=== PATIENT | female | born 1990 | race Caucasian/White ===

== ENCOUNTER 2021-03-29 10:01 | Emergency (ER) | payer BC, SELFPAY ==
--- NOTE | 2021-03-29 10:06 | ED.URI ---
HPI - URI/Sore Throat General Chief Complaint: Upper Respiratory Infection Stated Complaint: ACHY/SORE THROAT/COUGH Time Seen by Provider: 03/29/21 10:25 Source: patient and RN notes reviewed Mode of arrival: ambulatory Limitations: no limitations History of Present Illness HPI Narrative: 22-year-old female presents concern for body aches, productive cough, sore throat, nasal congestion, rhinorrhea. Reports 3 to 4 days of cough symptoms with body aches headache starting yesterday. MD elicited complaint: sore throat Related Data Home Medications Medication Instructions Recorded Confirmed No Home Medications 03/29/21 03/29/21 Allergies Allergy/AdvReac Type Severity Reaction Status Date / Time cefaclor Allergy Unknown Hives Verified 03/29/21 10:10 clarithromycin Allergy Unknown Hives Verified 03/29/21 10:10 amoxicillin Allergy Hives Verified 03/29/21 10:10 Review of Systems Review of Systems: Narrative: CONSTITUTIONAL: Denies malaise, chills, sweats, or fever. EYES: Denies visual changes, redness, or discharge. ENT: Reports rhinorrhea, congestion, and sore throat. Denies sinus pain, otalgia CARDIOVASCULAR: Denies chest pain, palpitations, or edema. RESPIRATORY: Reports cough. Denies dyspnea. GASTROINTESTINAL: Denies abdominal pain, nausea, vomiting, diarrhea SKIN: Denies rash or itching. MUSCULOSKELETAL: Reports myalgia. NEUROLOGIC: Reports headache. All systems reviewed & are unremarkable except as noted in HPI and below PMFSH Comments At time of signature, agree with nursing past medical, surgical, social and family history. There is no relevant family history pertinent to the presenting complaint Exam Narrative: Exam Narrative: GENERAL: Well-appearing, well-nourished, and in no acute distress. HEAD: Normocephalic EYES: PERRLA, conjunctivae clear ENT: Nares clear, turbinates erythematous, clear discharge. Mucous membranes moist. TM pearly mathis with sharp light reflex bilaterally; no tragal tenderness. Oropharynx not erythematous without lesions. Tonsils not enlarged and without exudate, no drooling, no hoarseness, no trismus, uvula midline. NECK: Supple. No lymphadenopathy CHEST: Clear to auscultation, breath sounds equal. No wheezing, rhonchi, rales, or stridor. No respiratory distress, speaks in full sentences. HEART: Regular rate and rhythm. No murmur heard. SKIN: Warm, dry, no rash. NEURO: Alert and oriented x3. PSYCH: Normal mood and affect Course Course Emergency Course: Patient is aware of diagnosis, understands and agrees to treatment plan. Anticipatory guidance given. Patient agrees to follow-up as directed and is aware of reasons to seek care at the emergency department. Portions of this record may have been created with voice recognition software Vital Signs Vital signs: Vital Signs Temperature 97.5 F L 03/29/21 10:14 Pulse Rate 105 H 03/29/21 10:14 Respiratory Rate 16 03/29/21 10:14 Blood Pressure 143/104 H 03/29/21 10:14 Pulse Oximetry 99 03/29/21 10:14 Temperature 97.5 F L 03/29/21 10:14 Pulse Rate 105 H 03/29/21 10:14 Respiratory Rate 16 03/29/21 10:14 Blood Pressure 143/104 H 03/29/21 10:14 Pulse Oximetry 99 03/29/21 10:14 Reviewed. MDM - URI/Sore Throat MDM Narrative Medical decision making narrative: Differential diagnosis considered: Dalton virus, strep pharyngitis, allergic rhinitis, upper respiratory tract infection, sinusitis, rhinosinusitis, nasopharyngitis. viral pharyngitis, otitis media, otitis externa, pneumonia, bronchitis, viral cough syndrome, viral syndrome, and influenza. Exam findings show no acute concerns or changes; patient is non-toxic appearing and is in no distress. Patient is appropriate for outpatient treatment and follow-up. Lab Data Attestation: I reviewed the patient's lab results. Critical Care Time Critical Care Time Critical Care Time: No Discharge Plan Discharge Clinical Impression: Upper respiratory infection Qualifie
[2021-03-29 10:14] VITALS: BP 143/104; PULSE 105; RESP 16; TEMP 36.4; O2SAT 99
[2021-03-31 15:56] LABS: SARS-CoV-2 RNA PCR Positive
== END 2021-03-29 10:48 | disposition home or self-care (01) ==
PROVIDERS: Emergency Provider Nurse Practitioner
DX: U07.1 COVID-19 (principal); J06.9 Acute upper respiratory infection, unspecified
CPT/HCPCS: 87081; 87880; 99203; C9803; G0463; U0003; U0005

== ENCOUNTER 2021-04-29 13:41 | Emergency (ER) | payer BC, SELFPAY ==
[2021-04-29 13:46] VITALS: BP 161/97; PULSE 128; RESP 16; TEMP 37.2; O2SAT 99
--- NOTE | 2021-04-29 13:47 | ED.GENADULT ---
HPI - General Adult General Chief complaint: Chest Pain Stated complaint: lt arm pain Time Seen by Provider: 04/29/21 13:50 Source: patient and RN notes reviewed Mode of arrival: ambulatory Limitations: no limitations History of Present Illness HPI narrative: 30-year-old female presents with complaints of left lower arm localized pain and intermittent feeling of heart beat for the past 6 hours. ?Clarisa reports searching google looking for symptoms of heart attack, once she started reading the symptoms believes she began feeling heart beating and became clammy. ?Midol with relief. ?Exacerbating factors is reading about symptoms of heart attack. ?Denies chest pain and dyspnea. ?No family history of sudden but has history of MD and heart disease on the father side of the family. ?Father had first MD at approximately [id number]. ?Denies fever or chills. ?Denies nausea, vomiting, diarrhea, or abdominal pain. Tolerating liquids wells. ?Denies leg swelling, long car rides, history of DVT, PE, LE edema, or dizziness. ?LMP 3 weeks ago. ?Remains active. ?The patient reports she was diagnosed with COVID-19 March 29, 2021. ?The patient reports she is not waiting for the results of a COVID-19 lab test. ?The patient reports she does not have weakness, fatigue, or myalgia. ?The patient reports he does not have a new or worsening cough. The patient reports he does not have any rhinorrhea, congestion, loss of taste, sore throat, and diarrhea. ?Denies recent traveling. ?Denies concerns for COVID-19 or exposures. ?At this time, the patient is not suspected of having COVID-19. Some parts of this dictation were generated by voice recognition software and may contain typographical and/or grammatical inaccuracies. Related Data Home Medications Medication Instructions Recorded Confirmed No Home Medications 03/29/21 03/29/21 Allergies Allergy/AdvReac Type Severity Reaction Status Date / Time cefaclor Allergy Unknown Hives Verified 03/29/21 10:10 clarithromycin Allergy Unknown Hives Verified 03/29/21 10:10 amoxicillin Allergy Hives Verified 03/29/21 10:10 Review of Systems Review of Systems: CONSTITUTIONAL: Denies fever, chills, sweats. EYES: Denies visual changes, redness, discharge. ENT: Denies rhinorrhea, congestion, sore throat, otalgia. CARDIOVASCULAR: Denies chest pain, palpitations, edema, diaphoresis. Complaints of feeling heart beat. RESPIRATORY: Denies dyspnea, wheezing, cough. GASTROINTESTINAL: Denies abdominal pain, nausea, vomiting, diarrhea. SKIN: Denies rash or itching. MUSCULOSKELETAL: Denies acute back pain or myalgia. Complains of left lower arm pain-Resolved. NEUROLOGIC: Denies numbness or focal weakness. PSYCHIATRIC: Denies anxiety or depression. All systems reviewed & are unremarkable except as noted in HPI and below. [facility], [facility] Past Medical History Medical History (Updated 04/29/21 @ 14:42 by SAUL Carranza) Arm fracture, left Finger fracture, left 3rd finger Left knee pain Meniscus problem Numerous skin moles Obesity Surgical History Surgical History (Updated 04/29/21 @ 14:42 by SAUL Carranza) History of surgical removal of skin lesion Family History Family History (Updated 04/29/21 @ 14:44 by SAUL Carranza) Father Acute myocardial infarction Heart disease Mother Skin cancer Social History Social History (Updated 04/29/21 @ 14:45 by SAUL Carranaz) Smoking status: Never smoker Tobacco type: cigarettes Second hand tobacco smoke exposure: No Alcohol intake: current Substance use: never Living arrangements: with family Occupation/Education: occupation Gender identity (if verbalized by the patient): Female Comments At time of signature, agree with the nurse past medical, surgical, social, and family history. There is no relevant family history pertinent to the presenting complaint. Exam Narrative: GENERAL: This is a well-nouris
--- NOTE | 2021-04-29 13:59 | ECG_ITS ---
Measurements Intervals [place] Rate: 120 P: 30 CO: 100 QRS: 24 QRSD: 90 T: 29 QT: 335 QTc: 474 Interpretive Statements SINUS TACHYCARDIA WITH SHORT CO INTERVAL BASELINE WANDER- V3 ABNORMAL ECG Electronically Signed On 04-29-2021 15:57:09 CDT by Ritchie Zarate D.O.
[2021-04-29 14:28] VITALS: BP 160/98
== END 2021-04-29 14:27 | disposition home or self-care (01) ==
PROVIDERS: Emergency Provider Nurse Practitioner Family
DX: M79.632 Pain in left forearm (principal); F41.9 Anxiety disorder, unspecified
CPT/HCPCS: 93005; 99213; G0463

== ENCOUNTER 2021-12-21 10:28 | Emergency (ER) | payer BC, SELFPAY ==
[2021-12-21] VITALS (11 sets, daily range): BP systolic 121–155; BP diastolic 68–129; PULSE 82–120; RESP 13–28; TEMP 36.4; O2SAT 96–100
--- NOTE | ~2021-12-21 | XR_ITS ---
EXAMINATION: XR chest 2V DATE: 12/21/2021 11:17 INDICATION: Dizziness TECHNIQUE: PA and lateral views of the chest were obtained. COMPARISON: None FINDINGS: Lung volumes are small but clear with no focal airspace opacities, pulmonary edema, pleural effusion or pneumothorax. The cardiomediastinal silhouette is normal. Mild thoracic spondylosis. IMPRESSION: 1. Small lung volumes. No acute cardiopulmonary disease. Reviewed, dictated and finalized at location A.
--- NOTE | 2021-12-21 11:09 | ECG_ITS ---
Measurements Intervals [place] Rate: 75 P: 31 [place]: 124 QRS: 20 QRSD: 90 T: 35 QT: 386 QTc: 431 Interpretive Statements SINUS RHYTHM REGION NORMAL LIMITS COMPARED TO ECG 04/29/2021 13:58:18 HEART RATE REDUCED, NO OTHER CHANGE Electronically Signed On 12-21-2021 20:50:30 CDT by Devendra Shaw M.D.
--- NOTE | 2021-12-21 11:33 | PC.NURSE ---
upon blood draw, patient became lightheaded. states she has trouble with blood draws and IVs. cool wash cloths given. feet elevated and call light within reach. will continue to monitor
[2021-12-21 11:34] LABS: Basophils Absolute Auto 0.1 K/mm3 (0.0-0.1); Basophils Percent Auto 0.4 % (0.2-1.2); Eosinophils Absolute Auto 0.1 K/mm3 (0-0.3); Eosinophils Percent Auto 0.8 % (0-4.4); Hematocrit 48.1 % (37.0-47.0); Hemoglobin 16.6 g/dL (12.0-15.0); Immature Granulocyte Absolute 0.06 K/mm3 (0.00-0.031); Immature Granulocyte Percent A 0.4 % (0-0.5); Lymphocytes Absolute Auto 2.43 K/mm3 (0.9-3.2); Lymphocytes Percent Auto 16.9 % (18.3-44.2); Mean Corpuscular HGB Conc 34.5 g/dl (32-36); Mean Corpuscular Hemoglobin 31.6 pg (26-34); Mean Corpuscular Volume 91.6 fl (80-100); Mean Platelet Volume 10.2 fl (7.4-10.4); Monocytes Absolute Auto 0.5 K/mm3 (0.1-0.6); Monocytes Percent Auto 3.5 % (2.6-8.5); Neutrophils Absolute Auto 11.2 K/mm3 (1.3-6.7); Platelet Count Result 424 k/mm3 (150-375); Red Blood Count 5.25 M/mm3 (4.2-5.4); Red Cell Distribution Width 12.2 % (11.5-14.5); White Blood Count 14.4 K/mm3 (4.5-10.0)
[2021-12-21 12:14] LABS: Anion Gap 7 mmol/L (8-16); Blood Urea Nitrogen 11 mg/dL (7-17); Calcium 9.2 mg/dL (8.4-10.2); Carbon Dioxide 27 mmol/L (22-30); Chloride 103 mmol/L (98-107); Estimated CRCL calculation 92 ml/min; Estimated Glomerular Filt Rate > 60; Glucose 126 mg/dL (65-110); Potassium 3.7 mmol/L (3.4-5.0); Sodium 137 mmol/L (137-145)
--- NOTE | 2021-12-21 12:17 | ED.DIZZY ---
HPI - Dizziness General Chief Complaint: Dizziness Stated Complaint: i think i had a heart attack? Time Seen by Provider: 12/21/21 11:41 Source: patient History of Present Illness HPI Narrative: 31-year-old female with history of hypertension presenting to the emergency department for evaluation of vertigo symptoms. Patient states at approximately noon yesterday when she was at work she had onset of a spinning sensation. Patient states this occurred while she was at work working at a desk. Patient denies any recent bending over and denies any falls or injuries. Patient has never had vertigo previously. Patient states that her symptoms are resolved when she closes her eyes. Patient states her vertigo persisted from noon until 7 PM last night when she laid down. Patient states she woke up this morning that the vertigo was resolved but that she still does have some residual nausea. Patient does take a losartan/hydrochlorothiazide for blood pressure. Patient did take this medication last night. Related Data Allergies Allergy/AdvReac Type Severity Reaction Status Date / Time cefaclor Allergy Unknown Hives Verified 12/21/21 11:20 clarithromycin Allergy Unknown Hives Verified 12/21/21 11:20 amoxicillin Allergy Hives Verified 12/21/21 11:20 Review of Systems Review of Systems: CONSTITUTIONAL: Denies fever, chills, or sweats. EYES: Denies visual changes, redness, or discharge. ENT: Denies rhinorrhea, congestion, sore throat, or otalgia. CARDIOVASCULAR: Denies chest pain, palpitations, or edema. RESPIRATORY: Denies cough or dyspnea. GASTROINTESTINAL: does have nausea GENITOURINARY: Denies dysuria or hematuria. SKIN: Denies rash or itching. MUSCULOSKELETAL: Denies back pain, joint pain, or myalgia. NEUROLOGIC: vertigo resolved at this time [facility] Past Medical History Medical History Arm fracture, left Finger fracture, left 3rd finger Left knee pain Meniscus problem Numerous skin moles Obesity Surgical History Surgical History History of surgical removal of skin lesion Family History Family History Father Acute myocardial infarction Heart disease Thyroid cancer Diabetes mellitus Hypertension Cerebrovascular accident Mother Skin cancer Hypertension Sibling Anxiety Depression Grandparent Skin cancer Hypertension Social History Social History Smoking status: Never smoker Second hand tobacco smoke exposure: No Alcohol intake: current Alcohol use details: 2 drinks a month - hard liquor Substance use: never 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 HEAD: normocephalic, atraumatic. EYES: PERRLA/EOMI, conjunctivae clear. NOSE: Normal no drainage EARS:TMS clear with good light reflex. THROAT: Pharynx clear, no exudate. NECK: Supple. No adenopathy, no masses. RESPIRATORY: Airway patent, respirations nonlabored. Clear to auscultation bilaterally, no rales, rhonchi, wheezing. CARDIOVASCULAR: Regular rate and rhythm without murmurs rubs or gallops. ABDOMINAL: Soft, nontender, nondistended, normal bowel sounds MUSCULOSKELETAL: Moves all extremities. Strength/ROM intact, No edema, No calf tenderness. NEURO: Alert. Cranial nerves II through XII intact. Grossly intact. No current vertigo and unable to induce vertigo symptoms SKIN: Warm, dry. Normal Color Course Course Emergency Course: Patient had no further vertigo in the emergency department. Imaging showed no acute abnormality. Patient states that her nausea was improved. Patient's blood pressure was also improved after adjusting the blood pressure cuff. Patient's heart rate i
[2021-12-21] MEDS: MECLIZINE HCL 25 MG TABLET PO (12:25)
--- NOTE | 2021-12-21 13:01 | PC.NURSE ---
patient states that she is not sexually active. provider aware and no bedside test needed
--- NOTE | 2021-12-21 13:25 | PC.NURSE ---
patient states that she feels better after receiving meclizine
== END 2021-12-21 14:06 | disposition home or self-care (01) ==
PROVIDERS: Physician Assistant; Emergency Provider Emergency Medicine; PCP Family Medicine
DX: R42 Dizziness and giddiness (principal); E66.9 Obesity, unspecified; Z68.41 Body mass index [BMI] 40.0-44.9, adult
CPT/HCPCS: 36415; 71046; 80048; 85025; 93005; 99283; A9270

== ENCOUNTER 2022-06-09 09:11 | Outpatient (CLI) | payer BC, SELFPAY ==
--- NOTE | 2022-06-09 09:13 | EST_ITS ---
Patient Info Name: Clarisa Tomas Age: 31 years : 1990 Gender: Female Exam Date: 06/09/2022 9:54 AM Exam Location: [facility] Stress Patient Status: Outpatient Admit Date: 06/09/2022 Staff Ordering Physician: Ritchie Zarate DO Attending Provider: Ritchie Zarate DO Exercise Technologist: Briseyda Carney CT Exercise Physician: Ritchie Zarate DO Exam Type: CA stress test treadmill Study Info Indications R07.9 - Chest pain, unspecified A treadmill exercise stress test was performed. Summary 1. 1. Negative Ketan exercise stress test for ischemic ST changes by ECG criteria. 2. 2. Good functional capacity, achieving 10 METs of workload. 3. 3. Appropriate HR response to exercise. 4. 4. Appropriate HR recovery at 1 minute post exercise. 5. 5. No imaging with stress testing. 6. 6. Patient informed of the above results. Protocol: [facility]an Stress ECG Details Stage: REST Duration (min): 1 min : 8 sec Speed (mph): 0.0 Grade (%): 0 HR (bpm): 95 SBP (mmHg): 119 DBP (mmHg): 76 METS: --- Stage: REST Duration (min): 11 min : 38 sec Speed (mph): 0.0 Grade (%): 0 HR (bpm): 106 SBP (mmHg): 119 DBP (mmHg): 76 METS: --- Stage: STAGE 1 Duration (min): 1 min : 0 sec Speed (mph): 1.7 Grade (%): 10 HR (bpm): 123 SBP (mmHg): 119 DBP (mmHg): 76 METS: --- Stage: STAGE 1 Duration (min): 2 min : 0 sec Speed (mph): 1.7 Grade (%): 10 HR (bpm): 127 SBP (mmHg): 119 DBP (mmHg): 76 METS: --- Stage: STAGE 1 Duration (min): 3 min : 0 sec Speed (mph): 1.7 Grade (%): 10 HR (bpm): 132 SBP (mmHg): 165 DBP (mmHg): 88 METS: --- Stage: STAGE 2 Duration (min): 1 min : 0 sec Speed (mph): 2.5 Grade (%): 12 HR (bpm): 147 SBP (mmHg): 165 DBP (mmHg): 88 METS: --- Stage: STAGE 2 Duration (min): 2 min : 0 sec Speed (mph): 2.5 Grade (%): 12 HR (bpm): 151 SBP (mmHg): 228 DBP (mmHg): 72 METS: --- Stage: STAGE 2 Duration (min): 3 min : 0 sec Speed (mph): 2.5 Grade (%): 12 HR (bpm): 155 SBP (mmHg): 228 DBP (mmHg): 72 METS: --- Stage: STAGE 3 Duration (min): 1 min : 0 sec Speed (mph): 3.4 Grade (%): 14 HR (bpm): 179 SBP (mmHg): 228 DBP (mmHg): 72 METS: --- Stage: STAGE 3 Duration (min): 2 min : 0 sec Speed (mph): 3.4 Grade (%): 14 HR (bpm): 188 SBP (mmHg): 163 DBP (mmHg): 72 METS: --- Stage: STAGE 3 Duration (min): 2 min : 0 sec Speed (mph): 3.4 Grade (%): 14 HR (bpm): 188 SBP (mmHg): 163 DBP (mmHg): 72 METS: --- Stage: RECOVERY Duration (min): 0 min : 59 sec Speed (mph): 0.0 Grade (%): 0 HR (bpm): 167 SBP (mmHg): 166 DBP (mmHg): 68 METS: --- Stage: RECOVERY Duration (min): 1 min : 59 sec Speed (mph): 0.0 Grade (%): 0 HR (bpm): 154 SBP (
== END 2022-06-09 09:12 | disposition home or self-care (01) ==
PROVIDERS: PCP Family Medicine; Visit Provider Internal Medicine Cardiovascular Disease
DX: R07.9 Chest pain, unspecified (principal)
CPT/HCPCS: 93017

== ENCOUNTER 2022-07-27 09:48 | Outpatient (CLI) | payer BC, SELFPAY ==
[2022-07-27 18:59] LABS: Basophils Absolute Auto 0.1 K/mm3 (0.0-0.1); Basophils Percent Auto 0.7 % (0.2-1.2); Eosinophils Absolute Auto 0.2 K/mm3 (0-0.3); Eosinophils Percent Auto 1.5 % (0-4.4); Hematocrit 46.9 % (37.0-47.0); Hemoglobin 15.8 g/dL (12.0-15.0); Immature Granulocyte Absolute 0.02 K/mm3 (0.00-0.031); Immature Granulocyte Percent A 0.2 % (0-0.5); Lymphocytes Absolute Auto 3.09 K/mm3 (0.9-3.2); Lymphocytes Percent Auto 29.4 % (18.3-44.2); Mean Corpuscular HGB Conc 33.7 g/dl (32-36); Mean Corpuscular Hemoglobin 31.2 pg (26-34); Mean Corpuscular Volume 92.5 fl (80-100); Mean Platelet Volume 10.7 fl (7.4-10.4); Monocytes Absolute Auto 0.7 K/mm3 (0.1-0.6); Monocytes Percent Auto 6.4 % (2.6-8.5); Neutrophils Absolute Auto 6.5 K/mm3 (1.3-6.7); Neutrophils Percent Auto 61.8 % (45.5-73.1); Platelet Count Result 443 k/mm3 (150-375); Red Blood Count 5.07 M/mm3 (4.2-5.4); Red Cell Distribution Width 12.1 % (11.5-14.5); White Blood Count 10.5 K/mm3 (4.5-10.0)
[2022-07-27 19:10] LABS: Cholesterol 179 mg/dL (0-200); HDL Direct 38 mg/dL; Triglycerides 132 mg/dL (<150)
[2022-07-27 19:21] LABS: LDL Cholesterol Direct 114 mg/dL
[2022-07-27 19:32] LABS: Hemoglobin A1C 5.3 % (<5.7)
== END 2022-07-27 09:49 | disposition home or self-care (01) ==
LOC: ANHGOSHLAB 09:51
PROVIDERS: PCP Family Medicine; Visit Provider Internal Medicine Cardiovascular Disease
DX: E78.5 Hyperlipidemia, unspecified (principal); R73.01 Impaired fasting glucose; Z13.29 Encounter for screening for other suspected endocrine disorder; D75.1 Secondary polycythemia
CPT/HCPCS: 36415; 80061; 83036; 84443; 85025

== ENCOUNTER 2022-11-25 15:20 | Outpatient (CLI) | payer BC, SELFPAY ==
[2022-11-25 20:09] LABS: Appearance Urine Clear (Clear); Bilirubin Urine Negative (Negative); Blood Urine 2+ (Negative); Color Urine Light Yellow (Yellow); Glucose Urine UA Negative (Negative); Ketones Urine Negative (Negative); Leukocyte Esterase Ur Negative LEU/UL (NEGATIVE); Nitrate Urine Negative (Negative); Protein Urine Negative (Negative); Urobilinogen Urine 0.2 mg/dL (<2.0)
[2022-11-25 20:12] LABS: Alanine Aminotransferase 45 U/L (6-35); Albumin Level 5.1 g/dL (3.5-5.1); Alkaline Phosphatase 82 U/L (38-126); Anion Gap 8 mmol/L (8-16); Aspartate Amino Transferase 80 U/L (14-36); Bilirubin,Total 0.6 mg/dL (0.2-1.3); Blood Urea Nitrogen 13 mg/dL (7-17); Calcium 9.3 mg/dL (8.4-10.2); Carbon Dioxide 31 mmol/L (22-30); Chloride 96 mmol/L (98-107); Estimated Glomerular Filt Rate > 60; Glucose 86 mg/dL (65-110); Potassium 3.5 mmol/L (3.4-5.0); Sodium 135 mmol/L (137-145)
[2022-11-25 20:19] LABS: Add Urine Microscopic? YES
== END 2022-11-25 15:21 | disposition home or self-care (01) ==
LOC: ANHGOSHLAB 15:21
PROVIDERS: PCP Family Medicine; Visit Provider Family Medicine
DX: Z13.228 Encounter for screening for other metabolic disorders (principal); R30.0 Dysuria; R35.0 Frequency of micturition
CPT/HCPCS: 36415; 80053; 81001

== ENCOUNTER 2023-01-25 15:03 | Outpatient (CLI) | payer BC, SELFPAY ==
[2023-01-25 18:37] LABS: Alanine Aminotransferase 38 U/L (6-35); Albumin Level 4.6 g/dL (3.5-5.1); Alkaline Phosphatase 68 U/L (38-126); Anion Gap 4 mmol/L (8-16); Aspartate Amino Transferase 55 U/L (14-36); Bilirubin,Total 0.6 mg/dL (0.2-1.3); Blood Urea Nitrogen 11 mg/dL (7-17); Calcium 9.4 mg/dL (8.4-10.2); Carbon Dioxide 35 mmol/L (22-30); Chloride 100 mmol/L (98-107); Estimated Glomerular Filt Rate > 60; Glucose 153 mg/dL (65-110); Potassium 4.1 mmol/L (3.4-5.0); Sodium 139 mmol/L (137-145)
== END 2023-01-25 15:04 | disposition home or self-care (01) ==
LOC: ANHGOSHLAB 15:17
PROVIDERS: PCP Family Medicine; Visit Provider Family Medicine
DX: Z13.228 Encounter for screening for other metabolic disorders (principal)
CPT/HCPCS: 36415; 80053

== ENCOUNTER 2024-07-24 07:43 | Outpatient (CLI) | payer BC, SELFPAY ==
--- NOTE | 2024-08-10 23:54 | P.SLEEP_ITS ---
Sleep Study - Home Unattended Date of Study: 07/24/24 Ordering Provider: Julius Claudio DO Interpreting Provider: Lanny Pelayo MD Home Sleep Study Type: Watch PAT Height: 1.57 m Weight: 108.862 kg Body Mass Index: 43.9 Neck Circumference (inches): 17 [place]: 3 Reason for Sleep Study Excessive daytime sleepiness Sleep History Clarisa Tomas is a 33-year-old woman with loud snoring at night and fatigue during the day. She can fall asleep any time. The symptoms are becoming worse. She has hypertension, takes amlodipine 10 mg and losartan/hydrochlorothiazide 100/25 mg. The patient is un refreshed and tired in the morning after waking. The patient has drowsy driving. There is no urge to move her legs in the evening, she does not have any issues with discomfort in the legs. She is more alert in the evening compared to the morning. She does not have difficulty returning to sleep if she awakens during the night. She does not have muscle weakness with strong emotion, does not feel paralyzed on falling asleep or upon awakening, does not have vivid dreamlike scenes upon falling asleep upon awakening and does not dream during daytime naps. There is no kicking or excessive leg movement at night. She does not clench or grind her teeth at night. Normal bedtime is 11:00 p.m. sometimes taking an hour to fall asleep. She has been 7 hours in bed. She spent 6 hours sleeping. She does not take planned naps. She does sleep a little longer on her days off. Habits: No tobacco, no regular alcohol use. No caffeinated beverages. She does not work rotating shifts. She exercises 3-4 nights a week, walking. [facility] Past Medical History Medical History (Updated 08/11/24 @ 00:04 by Lanny Pelayo MD) Arm fracture, left Finger fracture, left 3rd finger Hypertension Left knee pain Meniscus problem Numerous skin moles Obesity Surgical History Surgical History History of surgical removal of skin lesion Family History Family History Father Acute myocardial infarction Heart disease Thyroid cancer Diabetes mellitus Hypertension Cerebrovascular accident Mother Skin cancer Hypertension Sibling Anxiety Depression Grandparent Skin cancer Hypertension Social History Social History Smoking status: Never smoker Second hand tobacco smoke exposure: No Alcohol intake: current Alcohol use details: 2 drinks a month - hard liquor Substance use: never Lack of Transportation: No Lack of Food: Never True Current Housing: I Have Housing Concerned About Future Housing: No Difficulty Paying Gas/Electric Bills: No Difficulty Paying for Meds: No Currently Unemployed: No Education: Associate Degree Difficulty w/ Childcare or Family Care: No Living arrangements: with roommate(s) Occupation/Education: occupation 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 Gender identity (if verbalized by the patient): Female Medications Home Medications Medication Instructions Recorded Confirmed Type amlodipine 10 mg tablet 10 mg PO DAILY #90 tabs 06/19/24 06/19/24 Rx clotrimazole 1 % topical cream 1 applic topical Q12H #45 grams 06/19/24 06/19/24 Rx losartan 100 1 tablet PO DAILY #90 tabs 06/19/24 06/19/24 Rx mg-hydrochlorothiazide 25 mg tablet Sleep Procedure The sleep study was completed using GrabTaxiT a technically adequate device with seven channels: peripheral arterial tone, actigraphy, body position, snore, respiratory movement, pulse oximetry, sleep staging, and heart rate. Prior to using the device, the patient received verbal and written instructions for its application and was provided with the help desk phone number for additional telephonic instruction with 24-hour availability of qualified personnel to answer questions. The patient ran the test at home on August 09, and this was scored and interpreted Aug 10. Sleep Architecture The total recording time is 8 hours 29 minutes. The total sleep time is 7 hours 51 minutes. Sleep latency is 19 minutes. REM latency is 78 minutes. The patient had 13 episodes of waking. Sleep architecture shows 7.2% deep sleep, 65.6% % light sleep, and 27.2% % stage REM. The patient spent 362 minutes, 76.7% of total sleep time in the supine position. Respiratory Analysis The overall AHI is 71.2. The central AHI is 27. The REM AHI was 96.7. The supine AHI is 78.2. There was no evidence of Rob-Leos respirations. Oximetry Data The oxygen desaturation index is 62.8. The mean saturation is 91%, the lowest saturation is 62% %, and the patient spent 56.9 minutes, 12.1 % of the sleep time, below 88%. Snoring Profile Snoring was present, average intensity 45 dB. The patient snored above 45 dB for 178.8 minutes, 37.9 % of the sleep time. Cardiac Profile The average pulse is 83 beats per minute, the lowest pulse is 56 beats per minute, and the highest pulse is 143 beats per minute. Assessment and Plan Assessment and Plan (1) Obstructive sleep apnea: Code(s): G47.33 - Obstructive sleep apnea (adult) (pediatric) Status: Acute Assessment and Plan: This home sleep test using WatchPat on August 09, 2024 shows extremely severe obstructive sleep apnea, the apnea-hypopnea index is 71.2 with an elevated central apnea-hypopnea index of 27, minimum desaturation to 62% and 57 minutes or 12.1% the study spent below 88%. Patient had tachycardia to 143 beats per minute. Events were worse during REM and in the supine position. This patient has severe mixed sleep apnea with obstructive and central apnea therefore is not a candidate for auto PAP. The patient needs to have a dedicated full night CPAP titration in the sleep lab with a sleep aid available, if needed, to get to sleep and stay asleep during the titration. Given the central apnea-hypopnea index of 27, the patient needs to have an echocardiogram to evaluate for decreased LV function. Significant central apneas can be seen in the setting of congestive heart failure, stroke, alcohol use, opioid dependence and can be seen as an independent finding. Patient does not have any risk factors for central sleep apnea. BMI is 43. Weight management is advised. Clinical data suggests that weight loss of 10% can reduce the severity of respiratory events and snoring and improve AHI by as much as 25%. (2) Central sleep apnea: Code(s): G47.31 - Primary central sleep apnea Status: Acute Assessment and Plan: The central apnea hypopnea index us 27, normal is <= 5 events per hour. See above. Data The data obtained during this sleep study is adequate for interpretation. Certification This sleep study has been reviewed by a board certified sleep medicine physician.
[2024-08-11 00:04] VITALS: BMI 43.9
== END 2024-08-10 13:30 | disposition home or self-care (01) ==
LOC: ANHCSM 07:44
PROVIDERS: PCP Family Medicine; Visit Provider Family Medicine
DX: G47.30 Sleep apnea, unspecified (principal); G47.10 Hypersomnia, unspecified; G47.33 Obstructive sleep apnea (adult) (pediatric); G47.31 Primary central sleep apnea
CPT/HCPCS: 95800

== ENCOUNTER 2024-08-20 10:16 | Outpatient (CLI) | payer BC, SELFPAY ==
--- NOTE | 2024-09-12 13:56 | WPDSLEEPSTUD ---
Sleep Study Date of Study: 08/20/24 Ordering Provider: Julius Claudio DO Interpreting Physician: Tavia Wilkins DO Sleep Study Type: CPAP Titration Height: 1.57 m Weight: 111.13 kg Body Mass Index: 44.8 Neck Circumference (inches): 17.5 [place]: 3 Reason for Sleep Study WatchPAT home sleep test on 07/24/2024 showed an overall AHI of 71.2 with desaturation down to 62%. Sleep History Clarisa Tomas is a 34-year-old woman with loud snoring at night and fatigue during the day. She can fall asleep any time. The symptoms are becoming worse. She has hypertension, takes amlodipine 10 mg and losartan/hydrochlorothiazide 100/25 mg. The patient is un refreshed and tired in the morning after waking. The patient has drowsy driving. There is no urge to move her legs in the evening, she does not have any issues with discomfort in the legs. She is more alert in the evening compared to the morning. She does not have difficulty returning to sleep if she awakens during the night. She does not have muscle weakness with strong emotion, does not feel paralyzed on falling asleep or upon awakening, does not have vivid dreamlike scenes upon falling asleep upon awakening and does not dream during daytime naps. There is no kicking or excessive leg movement at night. She does not clench or grind her teeth at night. Normal bedtime is 11:00 p.m. sometimes taking an hour to fall asleep. She has been 7 hours in bed. She spent 6 hours sleeping. She does not take planned naps. She does sleep a little longer on her days off. Habits: No tobacco, no regular alcohol use. No caffeinated beverages. She does not work rotating shifts. She exercises 3-4 nights a week, walking. [facility] Past Medical History Medical History Hypertension Finger fracture, left 3rd finger Arm fracture, left Left knee pain Meniscus problem Numerous skin moles Obesity Surgical History Surgical History History of surgical removal of skin lesion Family History Family History Father Acute myocardial infarction Heart disease Thyroid cancer Diabetes mellitus Hypertension Cerebrovascular accident Mother Skin cancer Hypertension Sibling Anxiety Depression Grandparent Skin cancer Hypertension Social History Social History Smoking status: Never smoker Second hand tobacco smoke exposure: No Alcohol intake: current Alcohol use details: 2 drinks a month - hard liquor Substance use: never Lack of Transportation: No Lack of Food: Never True Current Housing: I Have Housing Concerned About Future Housing: No Difficulty Paying Gas/Electric Bills: No Difficulty Paying for Meds: No Currently Unemployed: No Education: Associate Degree Difficulty w/ Childcare or Family Care: No Living arrangements: with roommate(s) Occupation/Education: occupation 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 Gender identity (if verbalized by the patient): Female Medications Home Medications ?Medication ?Instructions ?Recorded ?Confirmed ?Type amlodipine 10 mg tablet 10 mg PO DAILY #90 tabs 06/19/24 06/19/24 Rx clotrimazole 1 % topical cream 1 applic topical Q12H #45 grams 06/19/24 06/19/24 Rx losartan 100 1 tablet PO DAILY #90 tabs 06/19/24 06/19/24 Rx mg-hydrochlorothiazide 25 mg tablet zolpidem 10 mg tablet 10 mg PO QHS PRN sleep #1 tablet 08/14/24 Rx Sleep Procedure A full night CPAP Titration using the InvenQuery SleepRADLIVE multi-channel system recorded the standard physiologic parameters including EEG, EOG, submentalis EMG, anterior tibialis EMG, EKG, body position, nasal and oral airflow using nasal pressure sensor and thermistor.? Respiratory parameters of chest and abdominal movements were recorded with Respiratory Inductance Plethysmography belts. Oxygen saturation was recorded by pulse oximetry. Video monitoring was also performed. Sleep stages, periodic limb movements, and EEG arousals were scored in 30 second epochs according to the criteria of the AASM Scoring Manual. The Apnea-Hypopnea Index was calculated using CMS guidelines for definition of hypopnea with 4% O2 desaturations while scoring respiratory events. Sleep Architecture The total recording time was 468.6 minutes.? The total sleep time was 410.5 minutes. Sleep latency was 12.7 minutes. REM latency was 90.5 minutes. Sleep efficiency was 87.6%. The patient had 30 awakenings for an awakening index of 4.4. Wake after Sleep Onset time was 45.0 minutes. The patient spent 28.5 minutes, 6.9% of total sleep time in Stage N1. The patient spent 221.5 minutes, 54.0% in Stage N2. The patient spent 92.0 minutes, 22.4% in Stage N3. The patient spent 68.5 minutes, 16.7% in Stage REM. Respiratory Analysis The patient had 29 hypopneas for an overall Apnea Hypopnea Index of 4.1 events per hour. The REM Apnea Hypopnea Index was 2.6. The NREM Apnea Hypopnea Index was 4.4. The patient had a Central Apnea Hypopnea Index of 0. There was no evidence of Rob-Leos Respirations. The patient was started on CPAP 5 cm H2O and titrated to CPAP 13 cm H2O due to hypopneas. The patient was able to fall asleep starting on CPAP 5 cm H2O. The patient was able to achieve REM sleep starting on CPAP 9 cm H2O. The patient was able to achieve a residual AHI less than 5 with both NREM and REM sleep in the supine position on the final two pressures. On CPAP 11 cm H2O, the patient spent 107.5 minutes in NREM and 10 minutes in REM with 9 hypopneas, resulting in an AHI of 4.6. On CPAP 13 cm H2O, the patient spent 153 minutes in NREM and 57.5 minutes in REM with 6 hypopneas, resulting in an AHI of 1.7. The patient had a sleep efficiency of 94.8% on 11 cm H2O and 87.5% on 13 cm H2O. Arousals There were 69 total arousals for an arousal index of 10.1. There were 45 spontaneous arousals for an index of 6.6. ?There were 11 arousals due to respiratory events for an index of 1.6. There were 0 arousals due to periodic limb movements for an index of 0.? There were 13 arousals due to isolated limb movements for an index of 1.9. Periodic Limb Movements The patient had 16 isolated limb movements with an index of 2.3. The patient had 0 periodic limb movements with index of 0. Patient had a total of 16 limb movements with a total limb movement index of 2.3. Oximetry Data The patient had an average oxygen saturation of 91.6% in sleep with a minimum oxygen saturation of 81.0% and a maximum oxygen saturation of 98.0%. The patient had 42 oxygen desaturations that were 4% or greater resulting in an Oxygen Desaturation Index of 6.1.? The patient spent 41.6 minutes, 9% of total sleep time with an oxygen saturation below 88%. Snoring Profile Mid snoring was present in the beginning of the study. The snoring resolved once the patient was titrated to CPAP 11 cm H2O. Cardiac Profile The EKG showed normal sinus rhythm. No arrhythmias or PVCs were seen. The patient had an average pulse rate of 81.7 bpm with a minimum pulse rate of 63.0 bpm and a maximum pulse rate of 110.0 bpm. ? EEG Profile No signs of seizure activity seen. Assessment and Plan Assessment and Plan (1) Obstructive sleep apnea: Code(s): G47.33 - Obstructive sleep apnea (adult) (pediatric) Status: Acute Assessment and Plan: The patient was started on CPAP 5 cm H2O and titrated to CPAP 13 cm H2O due to hypopneas. The patient's sleep apnea resolved on the final pressure. I recommend that the patient be prescribed CPAP 13 cm H2O, size small Resmed N30i nasal mask, CPAP filters/tubing and heated humidity. This should be used with all episodes of sleep.? Compliance should be reviewed within 31-90 days of starting therapy for usage greater than 4 hours per night greater than 70% of the nights. The patient should be asked about symptoms such as?excessive daytime sleepiness, quality of sleep, decreased nocturia, increased?mental functioning such as memory, mood, and concentration. Data The data obtained during this sleep study is adequate for interpretation. Certification This sleep study has been reviewed by a board certified sleep medicine physician.
[2024-09-13 19:31] VITALS: BMI 44.8
== END 2024-08-21 06:39 | disposition home or self-care (01) ==
LOC: ANHCSM 10:20
PROVIDERS: PCP Family Medicine; Visit Provider Family Medicine
DX: G47.33 Obstructive sleep apnea (adult) (pediatric) (principal); I10 Essential (primary) hypertension
CPT/HCPCS: 95811

== ENCOUNTER 2025-05-16 09:25 | Outpatient (CLI) | payer BC, SELFPAY ==
--- OUTSIDE RECORDS SUMMARY | 2025-05-16 09:36 | XMS_ITS | Clinical Summary ---
Author Organization [facility] Address [address] [place] [address] Phone Care Team Providers Care Rate Quoting Operator Name Role Phone Unavailable Primary Care Provider Unavailabl e Social History Tobacco Use Types Packs/Day Years Used Date Smoking Tobacco: Never Assessed Comments Unknown Sex and Gender Information Value Date Recorded Sex Assigned at Not on file Legal Sex Female 3:21 PM CDT Gender Identity Not on file Sexual Orientation Not on file Plan of Treatment Health Maintenance Due Date Last Done Comments Hepatitis C Virus (HCV) Screening 1992 TdaP Immunization 1992 Hepatitis B Immunization (1 of 3 - 19+ 3-dose series) 2011 Pap Smear 2013 Human Papillomavirus (HPV) Immunization (1 - 3-dose SCDM series) 2019 Cervical Cancer Screening (CCS) 2022 HPV/Cotest 2022 SARS-COV-2 Immunization (3 - season) 2024 07/02/2021, 05/26/2021 Influenza Immunization (#1) 2025 Respiratory Syncytial Virus (RSV) Immunization (Adult) (1 - 1-dose 75+ series) 2067 Meningococcal Immunization (ACWY) Aged Out No longer eligible b ased on patient's age to complete this topic Pneumococcal Immunization Combined Aged Out No longer eligible b ased on patient's age to complete this topic Rotavirus Immunization Aged Out No lo nger eligible based on patient's age to complete this topic
--- OUTSIDE RECORDS SUMMARY | 2025-05-16 09:37 | XMS_ITS | Patient Health Record ---
Author Organization [facility] As [facility] Address [address] [place] [address] Care Team Providers Care Fence Rider Name Role Phone Ayan Joy Unavailable [phone] Reason For Referral No Information Medications Medication SIG (Take, Route, Frequency, Duration) Notes Start Date End Date Status Losartan Potassium-HCTZ 50-12.5 MG Tablet Oral 09/29/2021 Active Amphetamine-Dextroamphet ER 15 MG Capsule Extended Release 24 Hour Oral 09/29/2021 Active Multivitamin Adults Tablet Oral 09/29/2021 Active Adderall XR 15 MG Capsule Extended Release 24 Hour Oral 09/29/2021 Act kalie Social History Social History Additional Details Category Social Info Options Details Migrated Social History Migrated Social History Alcohol Intake: Occasional 07/28/2021,Tobacco Years: Never smoker 07/28/2021 Plan Of Treatment No Information Insurance Providers Payer Name Payer Address Payer Phone Subscriber Number Group Number Insured Name Patient Relationship to Insured Coverage Start Date Coverage End Date [facility] [address] [place] [address] [id number] ELÍAS GANDHI Self - patient is the insured Medical (General) History Surgical History Surgery Date(Month/Year) Myringotomy tube placement 1992 Any surgical history 09/27/2005 Other 09/27/2009
--- OUTSIDE RECORDS SUMMARY | 2025-05-16 09:37 | XMS_ITS | Clinical Summary ---
Author Organization [facility] Address [address] [place] [address] Care Team Providers Care Poultry Farmer Egg Name Role Phone Unknown, Provider Primary Care Provider Unavaila ble Source Comments [facility],non-owned Affiliates and Associated Physician Practices is amultiple site organization consisting of ambulatory clinics and hospital sitesin [place], [place], [place] and [place]. This disclosure is being madepursuant to the Care Everywhere program and may not contain all information available regarding this patient. Last updated 18.[facility] Allergies Active Allergy Reactions Criticality Noted Date Comments Clarithromycin Urticaria Medium 09/07/2016 Cefaclor Urticaria Medium 09/07/2016 Medications * Be aware that medications may not be up to date on this document. Alwaysverify current medications with the patient. albuterol HFA (PROVENTIL HFA) 108 (90 BASE) MCG/ACT inhalerIndicatio ns:Acute bronchitis, unspecified organism Inhale 2 Puffs by mouth every 6 hours as needed for Wheezing or Cough 1 Inhaler 6 Active Social History Tobacco Use Types Packs/Day Years Used Date Smoking Tobacco: Never Comments Unknown Sex and Gender Information Value Date Recorded Sex Assigned at Not on file Legal Sex Female 11:56 PM MEDICAL ANTHROPOLOGIST Gender Identity Not on file Sexual Orientation Not on file Last Filed Vital Signs Vital Sign Reading Time Taken Comments Blood Pressure 132/74 09/07/2016 3:36 PM MEDICAL ANTHROPOLOGIST Pulse 88 09/07/2016 3:36 PM MEDICAL ANTHROPOLOGIST Temperature 36.8 C (98.2 F) 09/07/2016 3:36 PM MEDICAL ANTHROPOLOGIST Respiratory Rate - - Oxygen Saturation 96% 09/07/2016 3:36 PM MEDICAL ANTHROPOLOGIST Inhaled Oxygen Concentration - - Weight 99.8 kg (220 lb) 09/07/2016 3:36 PM MEDICAL ANTHROPOLOGIST Height - - Body Mass Index - - Plan of Treatment Health Maintenance Due Date Last Done Comments HIV SCREENING 2007 HEPATITIS C SCREENING 08/26/2010 DTAP/TDAP/TD VACCINES (1 - Tdap) 2011 HEPATITIS B VACCINE (1 of 3 - 19+ 3-dose series) 2011 HPV VACCINE (1 - 3-dose SCDM series) 2019 COVID-19 VACCINE (1 - 2023-2 5 season) 2024 DEPRESSION SCREENING 09/27/2024 INFLUENZA VACCINE (#1) 2025 ZOSTER VACCINE (1 of 2) 2042 HIB VACCINE Aged Out No longer eligi ble based on patient's age to complete this topic MENINGOCOCCAL (Group B) VACC INE SHARED DECISION-MAKING Aged Out No longer eligibl e based on patient's age to complete this topic MENINGOCOCCAL GROUPS A/C/Y/W VACCINE Aged Out No longer eligible b ased on patient's age to complete this topic PNEUMOCOCCAL VACCINE Aged Out No long er eligible based on patient's age to complete this topic Insurance [facility] J[address]NET [id number] Care Teams Poultry Farmer Egg Relationship Specialty Start Date End Date Unknown, Provider PCP - General 09/07/16
[2025-05-16 12:53] LABS: Hematocrit 45.4 % (37.0-47.0); Hemoglobin 15.1 g/dL (12.0-15.0); Mean Corpuscular HGB Conc 33.3 g/dl (32-36); Mean Corpuscular Hemoglobin 30.3 pg (26-34); Mean Corpuscular Volume 91.0 fl (80-100); Platelet Count Result 375 k/mm3 (150-375); Red Blood Count 4.99 M/mm3 (4.2-5.4); White Blood Count 8.9 K/mm3 (4.5-10.0)
[2025-05-16 13:09] LABS: Alanine Aminotransferase 24 U/L (6-35); Albumin Level 4.4 g/dL (3.5-5.1); Alkaline Phosphatase 83 U/L (38-126); Anion Gap 8 mmol/L (4-12); Aspartate Amino Transferase 30 U/L (14-36); Bilirubin,Total 0.5 mg/dL (0.2-1.3); Blood Urea Nitrogen 11 mg/dL (7-17); Calcium 9.4 mg/dL (8.4-10.2); Carbon Dioxide 27 mmol/L (22-30); Chloride 101 mmol/L (98-107); Cholesterol 191 mg/dL (0-200); Estimated Glomerular Filt Rate > 60; Glucose 90 mg/dL (65-110); HDL Direct 40 mg/dL; Potassium 3.4 mmol/L (3.4-5.0); Sodium 136 mmol/L (137-145); Total Protein 7.4 g/dL (6.3-8.2); Triglycerides 92 mg/dL (<150)
[2025-05-16 13:33] LABS: Hemoglobin A1C 5.3 % (<5.7)
[2025-05-16 13:45] LABS: Thyroid Stimulating Hormone 1.430 uIU/mL (0.465-4.680)
[2025-05-17 07:09] LABS: LH 4.5 mIU/mL (.)
[2025-05-17 12:08] LABS: FSH 7.1 mIU/mL (.)
[2025-05-22 03:07] LABS: Free Testosterone (Direct) 1.7 pg/mL (0.0-4.2)
[2025-05-23 18:08] LABS: Estradiol, Sensitive 41.4 pg/mL (.)
== END 2025-05-16 09:26 | disposition home or self-care (01) ==
LOC: ANHGOSHLAB 09:26
PROVIDERS: PCP Family Medicine; Visit Provider Obstetrics & Gynecology
DX: F41.9 Anxiety disorder, unspecified (principal); I10 Essential (primary) hypertension; E78.5 Hyperlipidemia, unspecified; E66.01 Morbid (severe) obesity due to excess calories; R73.09 Other abnormal glucose; N93.9 Abnormal uterine and vaginal bleeding, unspecified; L68.0 Hirsutism; Z01.419 Encounter for gynecological examination (general) (routine) without abnormal findings
CPT/HCPCS: 36415; 80053; 80061; 82627; 82670; 83001; 83002; 83036; 83498; 83525; 83527; 84144; 84146; 84402; 84403; 84443; 85027

== ENCOUNTER 2025-06-12 09:48 | Emergency (ER) | payer BC, SELFPAY ==
--- OUTSIDE RECORDS SUMMARY | 2014-08-22 05:00 | XMS_ITS | Continuity of Care Document ---
Author Organization [facility] Address [address] [place] [address] Phone Care Team Providers Care Supervisor Jewelry Department Name Role Phone Unavailable Unavailable Unavailable Allergies, Adverse Reactions, Alerts Substance Reaction Status Criticality clarithromycin Hives Active No Informatio n cefaclor Rash Active No Information Procedures Procedure Date REFRACTION EYE EXAM & TREATMENT REFRACTION EYE EXAM, NEW PATIENT Advance Directives Directive Yes / No Effective Date File Name Resuscitation Not Answered N/A N/A Life Support Not Answered N/A N/A Intubation Not Answered N/A N/A Antibiotics Not Answered N/A N/A IV Fluid Support Not Answered N/A N/A Tube Feed Not Answered N/A N/A Other Directive N/A N/A WARNING:The information contained in this section is historical and is provided for information only and does not constitute a legal document or any assurance that the information is still accurate. Please verify the information with the trent of the legal document before using it for clinical purposes. Encounters Encounter Description Practice Location Reason(s) For Visit Diagnoses Date Provider Providers Copied on Encounter [facility], [address] [place] [address], [id number] tel:[phone] [facility] Astigmatism, unspecified 4 No Information [facility], [address] [place] [address] [place], [place], [id number] tel:[phone] [facility] MyopiaAstigm atism, unspecified 2 No Information [facility], [address] [place] [address], [id number] [phone] [facility] No Information 2 [facility], [address] [place] [address], [id number]. tel:[phone] Family History Family Member Type Diagnosis Age At Onset Father Problem (finding) Heart attacks Father Problem (finding) Thyroid cancer Gr.Grandmother (p) Problem (finding) degenerative diso rder of macula Father Problem (finding) stroke Payers Payer name Insurance type Covered constitution party ID Authorrao guerra(s) Spect[employer] Exam CI [id number] Social History Type Description Quantity Date Captured Comments Alcohol Use Details No Caffeine Use Details Unknown Tobacco Use Status No Information Smoking Status Never smoker Sex Female Chief Complaint And Reason For Visit No Information Reason For Referral Reason For Referral No Information History Of Present Illness Encounter Date Complaint History Of Prese nt Illness No Information Functional Status Date Functional Assessmen t No Information Instructions Date Instruction Additional Infor matshiv Follow up - Return i n 2 years with Danny Hinson OD for Complete. Related to Astigmatism, unspecified Astigmatism, unspeci fied OU - New glasses Rx given, Stable exam call with va changes. Educational materials provided: Related to Astigmatism, unspecified - Return in 1 year w ith Danny Hinson OD for Complete. Related to Myopia Myopia OU - Glasses Rx given. (Rx = Wet MR -0.25). Discussed with patient. Related to Myopia Astigmatism, unspecified OU Rela cherie to Astigmatism, unspecified Assessments Type Assessment Date No Information Patient Care Teams Name Effective Dates (start - stop) Status Members No Information
--- OUTSIDE RECORDS SUMMARY | 2014-08-22 05:00 | XMS_ITS | Continuity of Care Document ---
Author Organization [facility] Address [address] [place] [address] Phone Care Team Providers Care Liaison Planner Name Role Phone Unavailable Unavailable Unavailable Allergies, [...] Providers Copied on Encounter [facility], [address] [place] [address], [id number] tel:[phone] [facility] Astigmatism, unspecified 4 No Information [facility], [address] [place] [address] [place], [place], [id number] tel:[phone] [facility] MyopiaAstigm atism, unspecified 2 No Information [facility], [address] [place] [address], [id number] [phone] [facility] No Information 2 [facility], [address] [place] [address], [id number]. tel:[phone] Family History Family Member Type Diagnosis Age At Onset Father Problem (finding) Heart attacks Father Problem (finding) Thyroid cancer Gr.Grandmother (p) Problem (finding) degenerative diso rder of macula Father Problem (finding) stroke Payers Payer name Insurance type Covered republican ID Authorrao guerra(s) [employer] Exam CI [id number] Social History Type Description Quantity Date Captured [...]
[2025-06-12 09:49] VITALS: BP 143/89; PULSE 118; RESP 16; TEMP 37.1; O2SAT 98
--- OUTSIDE RECORDS SUMMARY | 2025-06-12 11:11 | XMS_ITS | Clinical Summary ---
Author Organization [facility] Address [address] [place] [address] Phone Care Team Providers Care Lead Janitor Name Role Phone Unavailable Primary Care Provider [...]
--- OUTSIDE RECORDS SUMMARY | 2025-06-12 11:11 | XMS_ITS | Clinical Summary ---
Author Organization [facility] Address [address] [place] [address] Care Team Providers Care Helmet Hat Brim Cutter Name Role Phone Unknown, Provider Primary Care Provider Unavaila ble Source Comments [facility],non-owned Affiliates and Associated Physician Practices is amultiple site organization consisting of ambulatory clinics and hospital sitesin [place], [place], [place] and [place]. This disclosure is being madepursuant to the Care Everywhere program and may not contain all information available regarding this patient. Last updated 18.[facility] Allergies Active Allergy Reactions Criticality Noted Date [...] on file Legal Sex Female 11:56 PM SITE FOREMAN Gender Identity Not on file Sexual Orientation Not on file Last Filed Vital Signs Vital Sign Reading Time Taken Comments Blood Pressure 132/74 09/07/2016 3:36 PM SITE FOREMAN Pulse 88 09/07/2016 3:36 PM SITE FOREMAN Temperature 36.8 C (98.2 F) 09/07/2016 3:36 PM SITE FOREMAN Respiratory Rate - - Oxygen Saturation 96% 09/07/2016 3:36 PM SITE FOREMAN Inhaled Oxygen Concentration - - Weight 99.8 kg (220 lb) 09/07/2016 3:36 PM SITE FOREMAN Height - - Body Mass Index - - Plan of Treatment Health Maintenance Due Date Last Done Comments HIV SCREENING 2007 HEPATITIS C SCREENING 08/26/2010 DTAP/TDAP/TD VACCINES (1 - Tdap) 2011 HEPATITIS B VACCINE (1 of 3 - 19+ 3-dose series) 2011 HPV VACCINE (1 - 3-dose SCDM series) 2019 DEPRESSION SCREENING 09/27/2024 COVID-19 VACCINE (1 - 2023-2 5 season) 2025 INFLUENZA VACCINE (#1) 2025 ZOSTER VACCINE (1 [...] patient's age to complete this topic Insurance [facility] [address]NET [id number] Care Teams Helmet Hat Brim Cutter Relationship Specialty Start Date End Date Unknown, Provider PCP - General 09/07/16
--- OUTSIDE RECORDS SUMMARY | 2025-06-12 11:12 | XMS_ITS | Patient Health Record ---
Author Organization [facility] As Baby World [employer] [facility] Address [address] [place] [address] Care Team Providers Care Customer Account Administrator Name Role Phone Ayan Joy Unavailable [phone] Reason For Referral No Information Medications Medication [...] Insured Coverage Start Date Coverage End Date [facility] [address] [place] [address] [id number] ELÍAS GANDHI Self - patient is the insured Medical (General) History Surgical History Surgery Date(Month/Year) Myringotomy tube placement 1992 Any surgical history 09/27/2005 Other 09/27/2009
--- NOTE | 2025-06-12 11:51 | ECG_ITS ---
Test Date: 2025-06-12 12:18:39 Measurements Intervals [place] Rate: 92 P: 20 IA: 120 QRS: 12 QRSD: 96 T: 13 QT: 359 QTc: 444 Interpretive Statements SINUS RHYTHM normal ecg No previous ECG available for comparison Electronically Signed On 06-12-2025 12:39:10 CDT by Billy Peck M.D.
[2025-06-12 12:10] VITALS: BP 125/88; PULSE 95; RESP 12; O2SAT 95
--- NOTE | 2025-06-12 12:23 | ED_ITS ---
HPI - Neck Pain/Injury General Chief Complaint: Neck Pain/Injury Stated Complaint: shooting pain up left side of neck Time Seen by Provider: 06/12/25 11:08 Source: patient Mode of arrival: ambulatory Limitations: no limitations History of Present Illness HPI Narrative: Patient is a 34-year-old female who presents the ED with report left-sided neck pain. Patient reports she was woken up from her sleep around 6:30 a.m. this morning with a shooting pain from her left clavicular region up into her neck. She also report having some pain in her midback. The pain was intermittent for a couple of hours. Patient then decided to be seen. She notes family history of heart disease. She has history of hypertension. Denies current pain, shortness of breath, pain or swelling in legs, fevers, cough, numbness/tingling of extremities. Related Data Home Medications ?Medication ?Instructions ?Recorded ?Confirmed ?Last Taken ?Type bupropion HCl 300 mg 24 hr tablet, 300 mg PO QAM 05/1405/14/25 Unknown History extended release Allergies Allergy/AdvReac Type Severity Reaction Status Date / Time cefaclor (From Ceclor) Allergy Unknown Unknown Verified 06/12/25 09:57 clarithromycin Allergy Unknown Hives Verified 05/14/25 13:08 amoxicillin Allergy Hives Verified 05/14/25 13:08 Review of Systems 2 Review of Systems: All systems reviewed & are unremarkable except as noted in HPI. All systems reviewed & are unremarkable except as noted in HPI and below PMFSH Past Medical History Medical History Hypertension Finger fracture, left 3rd finger Arm fracture, left Left knee pain Meniscus problem Numerous skin moles Obesity Surgical History Surgical History History of placement of ear tubes History of surgical removal of skin lesion Family History Family History Father Acute myocardial infarction Heart disease Thyroid cancer Diabetes mellitus Hypertension Cerebrovascular accident Mother Skin cancer Hypertension Sibling Anxiety Depression Grandparent Skin cancer Hypertension Social History Social History Smoking status: Never smoker Second hand tobacco smoke exposure: No Alcohol intake: current Alcohol use details: socially Substance use: never Substance use type: does not use Do You Feel Safe in your Home?: Yes Lack of Transportation: No Lack of Food: Never True Current Housing: I Have Housing Concerned About Future Housing: No Difficulty Paying Gas/Electric Bills: No Difficulty Paying for Meds: No Currently Unemployed: No Education: Associate Degree Difficulty w/ Childcare or Family Care: No Living arrangements: alone Occupation/Education: occupation 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 HEAD: Normocephalic, atraumatic. RESPIRATORY: Airway patent, respirations nonlabored. Clear to auscultation bilaterally, no rales, rhonchi, wheezing. CARDIOVASCULAR: Regular rate and rhythm without murmurs, rubs, or gallops. MUSCULOSKELETAL: Moves all extremities. No gross deformities. No tenderness throughout cervical region, paraspinal musculature, thoracic region. SKIN: Warm, dry, normal color. NEURO: A&O X3. Speech clear. Cranial nerves II-XII grossly intact. Steady gait. No ataxic movements. PSYCHIATRIC: Appropriate mood and affect. Normal interaction. Course Vital Signs Vital signs: Vital Signs Temperature 98.7 F 06/12/25 09:49 Pulse Rate 118 H 06/12/25 09:49 Respiratory Rate 16 06/12/25 09:49 Blood Pressure 143/89 H 06/12/25 09:49 Pulse Oximetry 98 06/12/25 09:49 Oxygen Delivery Room Air 06/12/25 09:49 Temperature 98.4 F 06/12/25 13:30 Pulse Rate 84 06/12/25 13:30 Respiratory Rate 18 06/12/25 13:30 Blood Pressure 128/87 06/12/25 13:30 Pulse Oximetry 100 06/12/25 13:30 Oxygen Delivery Room Air 06/12/25 09:49 MDM - Neck Pain/Injury MDM Narrative Medical decision making narrative: No reproducible tenderness on exam to suggest musculoskeletal etiology Neurovascularly intact Patient concerned for cardiac etiology EKG is unremarkable. No concerning ST changes. Troponin is undetectable. Heart score of 1 based on BMI and history of hypertension. Patient declined chest x-ray Overall reassuring laboratory findings. Feel patient is safe for discharge home. Recommended close follow-up with PCP. She is in agreement with plan. Feels ready to go home. Does not want to wait for 3 hour troponin. Given strict return precautions. Discharged in stable condition Medical Records Attestation: I reviewed the patient's medical records. Lab Data Attestation: I reviewed the patient's lab results. 06/12/25 12:17 06/12/25 12:17 Labs: Lab Results 06/12/25 Range/Units 12:17 WBC 10.6 H (4.5-10.0) K/mm3 RBC 5.12 (4.2-5.4) M/mm3 Hgb 15.7 H (12.0-15.0) g/dL Hct 45.2 (37.0-47.0) % MCV 88.3 (80-100) fl MCH 30.7 (26-34) pg MCHC 34.7 (32-36) g/dl RDW 12.4 (11.5-14.5) % Plt Count 380 H (150-375) k/mm3 MPV 10.2 (7.4-10.4) fl Immature Gran % (Auto) 0.3 (0-0.5) % Neut % (Auto) 79.5 H (45.5-73.1) % Lymph % (Auto) 16.4 L (18.3-44.2) % [place] % (Auto) 3.2 (2.6-8.5) % Eos % (Auto) 0.2 (0-4.4) % Baso % (Auto) 0.4 (0.2-1.2) % Lymph # (Auto) 1.73 (0.9-3.2) K/mm3 [place] # (Auto) 0.3 (0.1-0.6) K/mm3 Eos # (Auto) 0.0 (0-0.3) K/mm3 Baso # (Auto) 0.0 (0.0-0.1) K/mm3 Abs Immat Gran (auto) 0.03 (0.00-0.031) K/mm3 Absolute Neuts (auto) 8.4 H (1.3-6.7) K/mm3 Absolute Nucleated RBC 0.000 (0.0-0.012) K/mm3 Nucleated RBC % 0.0 (0.0-0.2) % PT 15.2 H (11.1-14.7) Seconds INR 1.2 APTT 23.8 (22.3-36.8) Seconds Sodium 135 L (137-145) mmol/L Potassium 3.6 (3.4-5.0) mmol/L Chloride 104 (98-107) mmol/L Carbon Dioxide 23 (22-30) mmol/L Anion Gap 8 (4-12) mmol/L BUN 7 (7-17) mg/dL Creatinine 0.76 (0.7-1.0) mg/dL Estim Creat Clear Calc 110 ml/min Estimated GFR > 60 (59 - ) Glucose 113 H (65-110) mg/dL Calcium 9.0 (8.4-10.2) mg/dL Total Bilirubin 0.6 (0.2-1.3) mg/dL AST 28 (14-36) U/L ALT 26 (6-35) U/L Alkaline Phosphatase 100 (38-126) U/L Troponin I < 0.012 (0.000-0.034) ng/mL Total Protein 7.8 (6.3-8.2) g/dL Albumin 4.6 (3.5-5.1) g/dL Lipase 45 (23-300) U/L ECG Data EKG #1: Attestation: I personally reviewed and interpreted this ECG as follows: ECG completion date: 06/12/25 ECG completion time: 12:18 EKG Interpretation: normal rate (92), sinus rhythm and no ST changes Discharge Plan Discharge Clinical Impression: Neck pain on left side Patient Disposition: Home Condition: Stable Instructions: Antibiotic Form, Chest Pain (ED), Cervical Strain (ED), Cervical Radiculopathy (ED) Additional Instructions: Your workup here was reassuring. Follow-up with your primary care doctor for further evaluation. Return to the ED if you experience worsening or severe neck pain, chest pain, difficulty breathing, numbness of arms or legs, unable to keep down food or drink, or any other symptoms of concern. Patient Language: Surinamese Prescriptions: No Action bupropion HCl 300 mg tablet extended release 24 hr 300 mg PO QAM losartan-hydrochlorothiazide 100-25 mg tablet 1 tablet PO DAILY Qty: 90 3RF (DME) CPAP See Rx Instructions .Route .MEDSUPPLY Qty: 1 0RF Rx Instructions: 13 cm H2O, size small Resmed N30i nasal mask, CPAP filters/tubing and heated humidity Length of need: 99+ months amlodipine 10 mg tablet 10 mg PO DAILY Qty: 90 1RF Follow-up/Referrals: Kalie Farnsworth DO [Primary Care Provider, [facility]] Time of Disposition: 13:14 Quality HEART score for chest pain patients History: slightly suspicious ECG: normal Age: < or = to 45 years Risk factors: 1 or 2 risk factors Troponin: < or = to 1x normal limit Heart score: 1
[2025-06-12 12:25] LABS: Hematocrit 45.2 % (37.0-47.0); Hemoglobin 15.7 g/dL (12.0-15.0); Immature Granulocyte Percent A 0.3 % (0-0.5); Lymphocytes Absolute Auto 1.73 K/mm3 (0.9-3.2); Mean Corpuscular HGB Conc 34.7 g/dl (32-36); Mean Corpuscular Hemoglobin 30.7 pg (26-34); Mean Corpuscular Volume 88.3 fl (80-100); Nucleated Red Blood Cells Absolute Auto 0.000 K/mm3 (0.0-0.012); Nucleated Red Blood Cells Perc 0.0 % (0.0-0.2); Platelet Count Result 380 k/mm3 (150-375); Red Blood Count 5.12 M/mm3 (4.2-5.4); White Blood Count 10.6 K/mm3 (4.5-10.0)
[2025-06-12 12:40] LABS: Alanine Aminotransferase 26 U/L (6-35); Albumin Level 4.6 g/dL (3.5-5.1); Alkaline Phosphatase 100 U/L (38-126); Anion Gap 8 mmol/L (4-12); Aspartate Amino Transferase 28 U/L (14-36); Bilirubin,Total 0.6 mg/dL (0.2-1.3); Blood Urea Nitrogen 7 mg/dL (7-17); Calcium 9.0 mg/dL (8.4-10.2); Carbon Dioxide 23 mmol/L (22-30); Chloride 104 mmol/L (98-107); Estimated CRCL calculation 110 ml/min; Estimated Glomerular Filt Rate > 60; Glucose 113 mg/dL (65-110); Lipase 45 U/L (23-300); Potassium 3.6 mmol/L (3.4-5.0); Sodium 135 mmol/L (137-145); Total Protein 7.8 g/dL (6.3-8.2)
[2025-06-12 12:41] LABS: INR 1.2; Prothrombin Time 15.2 Seconds (11.1-14.7)
[2025-06-12 12:42] LABS: Partial Thromboplastin Time 23.8 Seconds (22.3-36.8)
[2025-06-12 12:48] LABS: Troponin I < 0.012 ng/mL (0.000-0.034)
--- OUTSIDE RECORDS SUMMARY | 2025-06-12 13:26 | XMS_ITS | Clinical Summary ---
Author Organization [facility] Address [address] [place] [address] Phone Care Team Providers Care Disability Aide Name Role Phone Unavailable Primary Care Provider [...]
--- OUTSIDE RECORDS SUMMARY | 2025-06-12 13:26 | XMS_ITS | Clinical Summary ---
Author Organization [facility] Address [address] [place] [address] Care Team Providers Care Mock Up Builder Name Role Phone Unknown, Provider Primary Care Provider Unavaila ble Source Comments [facility],non-owned Affiliates and Associated Physician Practices is amultiple site organization consisting of ambulatory clinics and hospital sitesin [place], [place], [place] and [place]. This disclosure is being madepursuant to the Care Everywhere program and may not contain all information available regarding this patient. 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
[2025-06-12 13:30] VITALS: BP 128/87; PULSE 84; RESP 18; TEMP 36.9; O2SAT 100
== END 2025-06-12 13:25 | disposition home or self-care (01) ==
PROVIDERS: Emergency Provider Physician Assistant; PCP Family Medicine
DX: M54.2 Cervicalgia (principal); I10 Essential (primary) hypertension; E66.01 Morbid (severe) obesity due to excess calories; Z68.42 Body mass index [BMI] 45.0-49.9, adult; Z79.899 Other long term (current) drug therapy
CPT/HCPCS: 36415; 80053; 83690; 84484; 85025; 85610; 85730; 93005; 99284